=== PATIENT | female | born 1980 | race Caucasian/White ===

== ENCOUNTER 2024-03-02 23:16 | Emergency (ER) | payer MEDICAID, SELFPAY ==
[2024-03-02 23:26] VITALS: BP 125/96; PULSE 66; RESP 16; TEMP 36.2; O2SAT 99
--- NOTE | 2024-03-02 23:30 | DI.CT_ITS ---
Exam(s) CT RENAL COLIC WO EXAM: CT RENAL COLIC WO CLINICAL HISTORY: RLQ/right flank pain, microscopic hematuria. TECHNIQUE: Imaging Protocol: Axial computed tomography images with coronal and sagittal reformatted images were created and reviewed. COMPARISON: CT ABD PELVIS WO CONTRAST from 07/19/2016 FINDINGS: ABDOMEN: Lung Bases: Normal where visualized. Liver: Normal density. No measurable mass. Gallbladder and biliary tract: No radiodense calculus or biliary ductal dilation. Pancreas: Normal density, no abnormal calcifications or inflammatory process. Spleen: Normal. Kidneys: Normal size, contour and axis.There is a 3 mm stone at the right UVJ causing mild hydronephr osis (series 3, image 696). No masses seen. Adrenal glands: No mass is seen. Lymph nodes: Within normal limits. Abdominal Aorta: Abdominal portion non-dilated. PELVIS: Bladder:The urinary bladder is incompletely distended limiting evaluation. Bowel: No obstruction or bowel wall thickening. Appendix is unremarkable. Peritoneal cavity: No ascites, collection or mesenteric inflammatory response. No free air. Reproductive organs: Unremarkable as visualized. Bones: Within normal limits. Soft Tissues: Within normal limits. IMPRESSION: 3 mm right UVJ calculus causing mild hydronephrosis. RADIATION DOSE DELIVERED: 897.9mGy.cm Total DLP DATA REPOSITORY: All CT scans at this facility are submitted to the National Radiology Data Registry (NRDR) Dose Index Registry (DIR) with the [employer] ([employer]). RADIATION OPTIMIZATION: All CT scans at this facility use at least one of these dose optimization te chniques: automated exposure control; mA and/or kV adjustment per patient size (includes targeted exa ms where dose is matched to clinical indication); or iterative reconstruction.
[2024-03-02 23:33] LABS: Bilirubin Negative (Negative); Blood Large (Negative); Clarity Sl Cloudy (Clear); Glucose Negative (Negative); Ketones Negative (Negative); Leukocyte Esterase Negative (Negative); Nitrite Negative (Negative); Specific Gravity >= 1.030 (1.005-1.025); Urobilinogen 0.2 mg/dL (Up to 0.2); pH 5.5 (5-8)
[2024-03-02 23:35] VITALS: BP 125/96; PULSE 66; RESP 16; TEMP 36.2; O2SAT 99
--- NOTE | 2024-03-02 23:36 | W.ED.GENAD ---
Discharge Plan Disposition Patient Disposition: Home Condition: Improving Discharge Details Clinical Impression: Renal colic on right side, Renal calculus, left Primary Care Provider: None,None ED Provider: Stanislav Osman Home Meds and New Rx's Prescriptions: New oxycodone 5 mg tablet 5 mg PO Q6H PRN (Reason: pain) Qty: 10 0RF tamsulosin 0.4 mg capsule 0.4 mg PO QHS Qty: 4 0RF ondansetron 4 mg tablet,disintegrating 4 mg PO Q8H PRN (Reason: nausea and vomiting) Qty: 10 0RF No Action ibuprofen 600 MG tablet 600 mg PO Q6H PRN Qty: 40 Patient Comments: Rx for after surgery epinephrine [EpiPen 2-Ayad] 0.3 MG/0.3 ML auto-injector 0.3 mg IJ PRN PRN (Reason: Anaphylaxis) Qty: 1 0RF albuterol sulfate [ProAir HFA] 200 PUFF HFA aerosol inhaler 2 puff Inhalation Q4H PRN PRNQty: 1 0RF (DME) inhalational spacing device [AeroChamber Plus Z Stat Sm Msk] 1 EACH spacer 1 ea Miscellaneous Q4H PRN Qty: 1 0RF Discharge Instructions Instructions: Kidney Stones (ED) Additional Instructions: Take 3 200 mg ibuprofen tablets every 6 hours as needed for symptoms of additional pain. You can take 1 or 2 oral oxycodone tablets every 4-6 hours as needed for additional pain relief. You can take 1 Zofran ODT tablet every 8 hours as needed for any symptoms of nausea and vomiting. This medication will dissolve under your tongue and does not necessarily be swallowed to be effective. You should take 1 tamsulosin tablet every night before bed, for the next 4 nights. Follow-up with your regular primary care doctor for recheck and further management, especially if symptoms not fully resolved with this care plan. You can always return to the ER for any new concerns or sudden changes in your health which you feel require emergency medical attention. Discharge Data Discharge Physician: Stanislav Osman [facility] General Date/Time Provider Initiated Documentation: 03/02/24 23:17. HPI Narrative: The patient is a 43-year-old female, with past medical history significant for prior total hysterectomy, who presents emergency department extremely complaining of right lower quadrant/right pelvic pain with some associated right flank pain which began at around 11 PM this evening. The patient reports that she was getting ready for bed when the pain began suddenly. The patient has associated nausea but no vomiting. She denies any associated diarrhea or constipation. The patient ate normally today and tonight before bedtime. The patient did not urinate or defecate before the onset of symptoms. Patient denies any recent illness such as fevers, chills, or respiratory tract infection symptoms, or upper GI symptoms. The patient has no urinary symptoms and denies any vaginal bleeding or discharge. Related Data Home Medications Medication Instructions Recorded Confirmed ibuprofen 600 mg tablet 600 mg PO Q6H PRN #40 tab-caps 02/24/13 03/02/24 epinephrine 0.3 mg/0.3 mL 0.3 mg (0.3 mL) IJ PRN PRN 05/26/17 03/02/24 injection, auto-injector (EpiPen Anaphylaxis ##1 2-Ayad) albuterol sulfate 90 mcg/actuation 2 puff inhalation Q4H PRN PRN #1 12/03/17 03/02/24 aerosol inhaler (ProAir HFA) inh inhalational spacing device ##1 12/03/17 (AeroChamber Plus Z Stat Small Mask) ondansetron 4 mg disintegrating 4 mg PO Q8H PRN nausea and 03/03/24 tablet vomiting #10 tabs oxycodone 5 mg tablet 5 mg PO Q6H PRN pain #10 tabs 03/03/24 tamsulosin 0.4 mg capsule 0.4 mg PO QHS #4 caps 03/03/24 Previous Rx's Medication Instructions Recorded epinephrine 0.3 mg/0.3 mL 0.3 mg (0.3 mL) IJ PRN PRN 05/26/17 injection, auto-injector (EpiPen Anaphylaxis ##1 2-Ayad) albuterol sulfate 90 mcg/actuation 2 puff inhalation Q4H PRN PRN #1 12/03/17 aerosol inhaler (ProAir HFA) inh inhalational spacing device ##1 12/03/17 (AeroChamber Plus Z Stat Small Mask) ondansetron 4 mg disintegrating 4 mg PO Q8H PRN nausea and 03/03/24 tablet vomiting #10 tabs oxycodone 5 mg tablet 5 mg PO Q6H PRN pain #10 tabs 03/03/24 tamsulosin 0.4 mg capsule 0.4 mg PO QHS #4 caps 03/03/24 Allergies Allergy/AdvReac Type Severity Reaction Status Date / Time venom-honey bee Allergy Severe Anaphylaxsi Verified 03/02/24 23:35 s Penicillins Allergy hives Unverified 03/02/24 23:35 hydrocodone AdvReac Intermediate Nausea Verified 03/02/24 23:35 Sulfa (Sulfonamide AdvReac headaches/v Unverified 03/02/24 23:35 Antibiotics) omiting General Stated Complaint: Abd Prob TONY: 3 Exam Const General: cooperative and no acute distress Nutritional Appearance: average body habitus Resp Effort & Inspection: normal respiratory effort, able to speak in complete sentences and no cough Auscultation: clear to auscultation bilaterally Cardio Rate: regular rate Rhythm: regular rhythm Heart Sounds: S1 normal and S2 normal GI Palpation: soft and tender in the RLQ and suprapubicly Auscultation: normal bowel sounds Skin General skin exam: no rashes or lesions noted and turgor normal Neuro General: patient oriented x3, moves all extremities, normal light touch, pain and propioception, no focal motor deficits and CN's II-XI intact bilaterally Extrem General: normal to inspection, full ROM and no clubbing, cyanosis or edema Course Vital Signs Vital signs: Vital Signs Temperature 36.2 C L 03/02/24 23:26 Pulse 66 03/02/24 23:26 Respiratory Rate 16 03/02/24 23:26 Blood Pressure 125/96 H 03/02/24 23:26 Pulse Oximetry 99 03/02/24 23:26 Temperature 36.2 C L 03/02/24 23:35 Temperature Source Temporal Artery Scan 03/02/24 23:35 Pulse 66 03/02/24 23:35 Respiratory Rate 16 03/02/24 23:35 Respiratory Effort Normal, Non-Labored 03/02/24 23:33 Blood Pressure 125/96 H 03/02/24 23:35 Blood Pressure Position Sitting 03/02/24 23:35 Pulse Oximetry 99 03/02/24 23:35 Oxygen Delivery Method Room Air 03/02/24 23:35 Oxygen Flow Rate 0 03/02/24 23:26 Pain Level 8 03/02/24 23:26 Lab/Test Results Lab/Test Results: Laboratory Tests Range/Units 03/02/24 23:24 Urine Color (Yellow) Yellow Urine Clarity (Clear) Sl Cloudy Urine pH (5-8) 5.5 Ur Specific [place] (1.005-1.025) >= 1.030 H Urine Protein (Neg-Trace) mg/dL 30 H Urine Ketones (Negative) mg/dL Negative Urine Blood (Negative) Large H Urine Nitrite (Negative) Negative Urine Bilirubin (Negative) Negative Urine Urobilinogen (Up to 0.2) mg/dL 0.2 Ur Leukocyte Esterase (Negative) Negative Urine Glucose (Negative) mg/dL Negative Medical Decision Making The patient was seen and examined. She appears in no distress and has normal vital signs. Her abdominal exam is relatively benign, or at least there is not any signs of overt peritonitis. The patient continues to have an appendix, although a sudden onset of symptoms would be an atypical presentation for appendicitis. Reportedly the patient has had a hysterectomy with a bilateral oophorectomy, which means that this should not represent some form of ovarian cyst disease or ovarian torsion. The patient has no prior history of renal colic or renal stones, but this would be the most compatible pathology with the history presented. The patient denies any urinary symptoms, fevers, or chills, which makes a UTI somewhat less likely but still possible as an etiology. Other etiologies would be some form of enteritis, terminal ileitis, or colitis. This could also represent something simple such as entrapped bowel gas that is causing distention of the luminal diameters and pain associated with that. The patient will have a CT scan to further evaluate her abdominal pain, to either evaluate for renal stone or bowel pathology, depending on the results of her urine study. Pain resolved with several rounds of analgesics here in the ER. The CT scan revealed a 3 mm stone at the right UVJ with some mild hydronephrosis in the right sided collecting system. Plan is for discharge with some additional oral pain medications and tamsulosin for several days. Quality:SDOH Health Related Social Needs: No Data to Display PFSH All Active Problems (Updated 03/03/24 @ 03:01 by Stanislav Osman MD) Renal calculus, left (Acute) Renal colic on right side (Acute) Surgical History (Updated 03/18/13 @ 16:46 by Mayra Triplett) laparoscopic BSO (02/26/13) Hysterectomy, Laparoscopic Supracervical (~2010) Social History Smoking/Tobacco Use Status: Current every day Smoking risk assessment performed?: Yes Alcohol Intake: current Alcohol Intake frequency: holidays/special occasions only Drug use: Occasionally Substance use type: marijuana Do you feel safe at home: Yes Do you feel safe in your relationship?: Yes
[2024-03-02] MEDS: Ondansetron 4 MG/2 ML VIAL IVP (23:37)
[2024-03-02] MEDS: Ketorolac 30 MG/ML VIAL IVP (23:37)
[2024-03-02] MEDS: Normal Saline 1,000 ML 1000 ML IV (23:37)
[2024-03-02 23:40] LABS: Bacteria Rare HPF (Negative); C & S Indicated? No; Crystals Negative HPF (Negative); Epithelial Cells Rare HPF (Negative); Mucus Trace (Negative); RBC >50 HPF (0-2); WBC 0-2 HPF (0-5)
[2024-03-02 23:46] LABS: Abs Immature Grans 0.03 10^3/uL (0.0-0.06); Absolute Basophil Count 0.06 10^3/uL (0.0-0.2); Absolute Eosinophil Count 0.13 10^3/uL (0.0-0.7); Absolute Lymphocyte Count 4.76 10^3/uL (1.2-3.4); Absolute Monocyte Count 0.66 10^3/uL (0.1-0.8); Absolute Neutrophil Count 5.38 10^3/uL (1.2-6.7); Basophils % 0.5 %; Eosinophils % 1.2 %; HCT 44.4 % (36.0-46.0); HGB 15.1 g/dL (11.2-15.7); Immature Grans % 0.3 %; Lymphocytes % 43.2 %; MCH 30.9 pg (27.0-33.0); MCV 91 fL (80-95); MPV 9.7 fL (8.0-11.0); Neutrophils % 48.8 %; Platelet Count 356 10^3/uL (130-400); RBC 4.88 10^6/uL (3.93-5.22); RDW 11.9 % (11.7-14.6); RDW-SD 39.8 fL; WBC 11.03 10^3/uL (4.4-10.8)
[2024-03-03] VITALS (22 sets, daily range): BP systolic 92–131; BP diastolic 52–77; PULSE 63–84; RESP 16; TEMP 36.5; O2SAT 95–100
[2024-03-03 00:02] LABS: ALT 29 U/L (14-59); AST 19 U/L (15-37); Albumin 4.4 g/dL (3.4-5.0); Alkaline Phosphatase 70 U/L (46-116); Anion Gap 12.8 mmol/L (3-11); BUN 19 mg/dL (7-18); Bilirubin, Total 0.3 mg/dL (0.2-1.0); CO2 26.2 mmol/L (21.0-32.0); CREATININE 0.8 mg/dL (0.55-1.02); Calcium 9.2 mg/dL (8.5-10.1); Chloride 106 mmol/L (98-107); Estimated GFR 94.87 (mL/min/1.73m2); Glucose 105 mg/dL (74-106); Potassium 4.2 mmol/L (3.5-5.1); Sodium 145 mmol/L (136-145); Total Protein 7.8 g/dL (6.4-8.2)
[2024-03-03] MEDS: ACETAMINOPHEN 1,000 MG/100 ML BTL 400 MG IVPB (00:53)
--- NOTE | 2024-03-03 02:21 | DI.VRAD_ITS ---
PROCEDURE INFORMATION: Exam: CT Abdomen And Pelvis Without Contrast Exam date and time: 03/02/2024 11:54 PM Age: 43 years old Clinical indication: Abdominal pain; Localized; Right lower quadrant (rlq); Prior surgery; Surgery date: 6+ months; Surgery type: Hysterectomy; Patient HX: Rlq/right flank pain, microscopic hematuria; Additional info: HX of kidney stones TECHNIQUE: Imaging protocol: Computed tomography of the abdomen and pelvis without contrast. COMPARISON: CR CHEST 2 VIEWS PA,LAT 12/03/2017 3:06 PM FINDINGS: Lungs: Lung bases are clear. Liver: Unremarkable noncontrast liver imaging. Gallbladder and bile ducts: Normal. No calcified stones. No ductal dilation. Pancreas: Normal. No ductal dilation. Spleen: Normal. No splenomegaly. Adrenal glands: Normal. No mass. Kidneys and ureters: Moderate right hydronephrosis. The right ureter is mildly dilated. A 3 mm stone is noted at the right ureteral vesicular junction; see axial image 117 series 2. There are no other stones observed in the kidneys or ureters. Stomach and bowel: Unremarkable stomach. Nondilated small bowel. Fat planes around loops of small bowel are indistinct. There are no inflammatory changes observed around the colon. Appendix: Normal appendix. Intraperitoneal space: Mild mesenteric fat stranding. No significant free fluid. Negative for free air. Negative for abscess. Vasculature: No significant vascular calcifications. Negative for abdominal aortic aneurysm. Lymph nodes: Mesenteric lymph nodes are mildly prominent. No suspicious retroperitoneal lymphadenopathy. Urinary bladder: Collapsed. There are no stones within the urinary bladder. Reproductive: Unremarkable as visualized. Bones/joints: No compression fractures. Disc bulge is noted at L4-L5. No anterolisthesis or retrolisthesis. Soft tissues: No significant abdominal wall hernia. IMPRESSION: 1. Right ureteral vesicular junction stone, 3 mm. 2. Moderate right hydronephrosis. 3. Additional findings suggest infectious/inflammatory enteritis. Dictated and Authenticated by: Blas John MD. Ordering:DEJAN [place] MD
[2024-03-03] MEDS: MORPHine 4 MG/ML SYR IVP (02:32)
[2024-03-03] MEDS: Tamsulosin 0.4 MG CAPCR PO (02:33)
== END 2024-03-03 03:11 | disposition home or self-care (01) ==
PROVIDERS: Emergency Provider Emergency Medicine Emergency Medical Services
DX: N13.2 Hydronephrosis with renal and ureteral calculous obstruction (principal); F17.200 Nicotine dependence, unspecified, uncomplicated
CPT/HCPCS: 36415; 80053; 96361; 96365; 96375; 99284; 74176; 81003; 81015; 85025; J0131; J1885; J2270; J2405